=== PATIENT | female | born 1945 | race Caucasian/White ===

== ENCOUNTER 2017-07-17 23:40 | Emergency (ER) | payer MEDICARE, OTHER ==
[~2017-07-17] VITALS: Ht 160 cm; Wt 72.6 kg
[~2017-07-17 23:40] MED LIST: ARTO15 OP; ASPI-757 PO; CALC-854 PO; CALC500T42 PO; CALC600T72 PO; CEP500 PO; CETI10CA8 PO; CYCL1DRO6 OP; ESOM40CA42 PO; FAM20 PO; FEXO1TAB63 PO; FISH OIL1 CAP PO; FUR40 PO; GLUC-232 PO; IBUP100T51 PO; LEVO500T PO; LORA10CA3 PO; MET50 PO; METO25TA91 PO; METO25TA93 PO; MINO50CA PO; MULT-1 PO; Maxide; Mega Red PO; OMEG300C3 PO; POTA-24 PO; PRO25 PO; SERT25TA87 PO; SIMV5TAB56 PO; SPIR25TA78 PO; TETR-30 PO; TRIA-20 PO; VITA-131 PO; [UNRECOGNIZED DRUG - CODE] DT
--- NOTE | 2017-07-17 23:49 | ER Report ---
History and Physical Time Seen By MD: 23:48 HPI/ROS CHIEF COMPLAINT: fall with head injury HISTORY OF PRESENT ILLNESS: This is a 71 year old female. She tripped, lost her balance and fell tonight. Fell backward and hit her head on ceramic tile floor. No loss of consciousness. She has had several drinks tonight. She has a headache , some blurred vision, and difficulty concentrating. Occasional dizziness. Denies nausea. No neck pain. No other injury. Posterior scalp is bleeding. Allergies: Coded Allergies: Sulfa (Sulfonamide Antibiotics) (Verified Allergy, Mild, 07/17/17) Uncoded Allergies: HAYFEVER (Allergy, Intermediate, UNKNOWN, 12/26/11) Home Meds Reported Medications Diphenhydramine Hcl (DIPHENHYDRAMINE HCL) 50 Mg Capsule, 50 MG PO HS, CAPSULE 07/18/17 Melatonin (MELATONIN) 10 Mg Tablet, 20 MG PO HS 07/18/17 Aspirin (ASPIRIN) 325 Mg Tablet, 325 MG PO Q4-6H Y for PAIN/HEADACHE, TAB 05/11/16 Fexofenadine Hcl/Pseudoephedr (LUCY-D 24 HOUR TABLET) 1 Each Tabsr, 1 TAB PO QDAY Y for CONGESTION 05/11/16 Calcium Crb&Cit/D3/Min34/Enrrique (CITRACAL + BONE DENSITY TABLET) 1 Each Tablet, 1 EACH PO DAILY 05/11/16 Vitamin B Complex (VITAMIN B COMPLEX) 1 Each Tablet, 1 EACH PO DAILY 05/11/16 Triamterene/Hydrochlorothiazid (Triamterene/Hctz 37.5/25 Tb) 1 Each Tablet, 1 EACH PO 12/08/12 Gluc 2KCL/Chondr/Alma Delia Hy/Hy Ac (GLUCOSAMINE & CHONDROITIN CAP) 1 Each Capsule, 1 EACH PO DAILY 12/08/12 Multivitamins W-Minerals/Lut (Centrum Silver Tablet) 1 Tab Tablet, 1 TAB PO DAILY 12/08/12 [place]-3 Fatty Acids (Fish Oil) 300 Mg Capsule, 300 MG PO DAILY, 0 Refills 08/12/11 Esomeprazole Mag Trihydrate (Nexium) 40 Mg Capsule.dr, 40 MG PO QDAY, 0 Refills 08/12/11 Metoprolol Tartrate (Metoprolol Tartrate) 25 Mg Tablet, 25 MG PO BID, 0 Refills 1/28/12 Discontinued Reported Medications Cyclosporine (Restasis) 32 Ea [place], 1 EA OP QHS, 0 Refills 08/12/11 Reviewed Nurses Notes: Yes Hx Smoking: Yes (SMOKES 1 CIGAR PER DAY SINCE 1975. SMOKED CIGARETTES 10 YRS 1 PPD) Smoking Status: Current: Every Day Smoker, Light Tobacco Smoker Exposure to Second Hand Smoke?: No Hx Substance Use Disorder: No Hx Alcohol Use: Yes Constitutional Vital Sign - Last 24 Hours 07/17/17 07/18/17 07/18/17 07/18/17 23:46 00:00 00:01 00:20 Pulse 70 64 63 Resp 16 16 B/P (MAP) 145/111 (122) 145/111 150/69 (96) Pulse Ox 96 97 97 O2 Delivery Room Air Room Air 07/18/17 07/18/17 07/18/17 07/18/17 00:27 00:30 00:45 01:00 Pulse 59 B/P (MAP) 150/69 (96) 157/70 (99) Pulse Ox 99 97 07/18/17 01:30 Pulse 88 Resp 16 B/P (MAP) 148/88 (108) Pulse Ox 94 O2 Delivery Room Air Physical Exam General Appearance: The patient is alert, no acute distress. Eyes: Pupils equal and round no injection. Reactive to light. Extraocular movements are intact. ENT: normal oral mucosa. Neck: Neck is supple and non tender. Respiratory: Breathing easily. Cardiac: regular rate and rhythm Musculoskeletal: Extremities have full range of motion. Neck non-tender. Neuro: Alert and oriented x4. No focal deficits. Skin: Scalp laceration posterior to the right. Bleeding briskly and lots of blood matting the hair. DIFFERENTIAL DIAGNOSIS: After history and physical exam differential diagnosis was considered for fall with head laceration. Medical Decision Making EKG/Imaging Imaging EXAMINATION: Head CT without intravenous contrast History:Fall TECHNIQUE: Contiguous axial images were obtained from the skull base to the vertex without intravenous contrast. One of the following dose optimization techniques was utilized in the performance of this exam: Automated exposure control; adjustment of the mA and/or kV according to the patient's size; or use of an iterative reconstruction technique. Specific details can be referenced in the facility's radiology CT exam operational policy. COMPARISON STUDIES: 08/04/2011 FINDINGS: Visualized mastoid air cells / paranasal sinuses: negative Skull base / calvarium: Right parietal scalp swelling and hematoma. White matter: Moderate chronic small vessel disease. Dural venous sinuses / arterial structures: negative Ventricles / sulci / fissures: Enlarged but within normal limits for age. Masses / hemorrhage / midline shift: negative Extra-axial spaces: negative IMPRESSION: Right parietal scalp swelling and hematoma. No evidence of fracture or acute intracranial posttraumatic changes. Report Dictated By: Zen Isabel MD at 07/18/2017 12:59 AM EXAMINATION: CT cervical spine Additional pertinent history: Fall COMPARISON STUDIES: None One of the following dose optimization techniques was utilized in the performance of this exam: Automated exposure control; adjustment of the mA and/ or kV according to the patient's size; or use of an iterative reconstruction technique. Specific details can be referenced in the facility's radiology CT exam operational policy. TECHNIQUE: Axial images were obtained from the skull base through the upper thoracic spine without IV contrast administration. Coronal and sagittal reformatted images were obtained from the axial source data. FINDINGS: Prevertebral soft tissues: Negative Alignment: Loss of the normal cervical lordosis. Vertebral bodies: No vertebral body compression fractures. Posterior elements: Posterior elements well-maintained with respect to alignment. No fracture or disruption. Disc spaces: Degenerative changes at the C1-2 articulation. Disc degenerative changes at the C5-6 and C6-7 levels. Visualized soft tissues anterior neck: Negative Visualized lung/mediastinum: Negative IMPRESSION: 1. Loss of the normal cervical lordosis which may be related to muscle spasm. No acute bony pathology. Mild degenerative changes as described Report Dictated By: Herrera Marques MD at 07/18/2017 1:07 AM ED Course/Re-evaluation ED Course Procedure: Laceration Repair Verbal consent from patient after discussing repair options, risks and benefits. Wound cleaned extensively with Hibiclens and saline. Anesthesia: Local 1% lidocaine with epinephrine. Location: posterior right scalp. Length: 2cm. Character: Hematoma and bleeding briskly. Wound repair: 5 marcia. The wound repair was simple and performed by myself. Wound care instructions discussed. [place] need to be removed in 7 days. Tetanus booster given. Decision to Disposition Date: Jul 18, 2017 Decision to Disposition Time: 01:34 Depart Departure Latest Vital Signs Vital Signs Date Time Temp Pulse Resp B/P (MAP) Pulse Ox O2 Delivery O2 Flow Rate FiO2 07/18/17 01:30 88 16 148/88 (108) 94 Room Air Impression: Primary Impression: Concussion Additional Impression: Scalp laceration Condition: Improved Disposition: HOME OR SELF-CARE Referrals: CECY NAQVI MD (PCP) Patient Instructions: Concussion (ED), Laceration (ED) Additional Instructions: Wound Care: Wash the wound once a day with soap and water. Dry the wound and apply a small amount of antibiotic ointment with a clean dressing. If the dressing becomes wet or dirty, repeat cleaning and dressing as above. No soaking the wound; no swimming. [place] need to be removed in 7 days. Pain Control: Use Tylenol or ibuprofen for pain. Using and ice pack can help reduce swelling. Concussion symptoms include: headache, nausea/vomiting, dizziness, difficulty concentrating, blurred vision. These symptoms can be mild or moderate. If symptoms become severe, follow-up evaluation is needed. Avoid any heavy physical activity and avoid any activities that may cause repeat head injury. Concussion symptoms can last for days or weeks. There is no way to predict how long these will last. It is okay to sleep after a head injury. Just make sure someone is with you for the next 12 hours and that they check 1-2 hours to make sure you are still doing okay. Return to the ER for any altered mental status changes or confusion, or if one pupil is larger than the other, or if there are other abnormal or severe changes. Use Tylenol as needed for pain for the next 12-24 hours. You can begin using Ibuprofen after about 24 hours. Do not take any medicines containing aspirin for several days. Problem Qualifiers Primary Impression: Concussion Encounter type: initial encounter Loss of consciousness presence/duration: without LOC Qualified Codes: S06.0X0A - Concussion without loss of consciousness, initial encounter Additional Impression: Scalp laceration Encounter type: initial encounter Qualified Codes: S01.01XA - Laceration without foreign body of scalp, initial encounter CARLOZ MEAD MD Jul 17, 2017 23:49
[2017-07-18] MEDS ORDERED: MELA10TA2 PO (00:01)
[2017-07-18] MEDS ORDERED: DIPH-466 PO (00:01)
--- NOTE | 2017-07-18 01:05 | RADIOLOGY IMAGING REPORT ---
FACILITY: [facility] - [place] PATIENT NAME: Ysabel Newell : 1945 MR: [id number] V: [id number] EXAM DATE: ORDERING PHYSICIAN: CARLOZ MEAD TECHNOLOGIST: [place] [facility] [place] Ysabel Neewll : 1945 Visit/Account:[id number] Date of Sevice: 07/17/2017 EXAMINATION: Head CT without intravenous contrast History:Fall TECHNIQUE: Contiguous axial images were obtained from the skull base to the vertex without intraven ous contrast. One of the following dose optimization techniques was utilized in the performance of th is exam: Automated exposure control; adjustment of the mA and/or kV according to the patient's size; or use of an iterative reconstruction technique. Specific details can be referenced in the facility 's radiology CT exam operational policy. COMPARISON STUDIES: 08/04/2011 FINDINGS: Visualized mastoid air cells / paranasal sinuses: negative Skull base / calvarium: Right parietal scalp swelling and hematoma. White matter: Moderate chronic small vessel disease. Dural venous sinuses / arterial structures: negative Ventricles / sulci / fissures: Enlarged but within normal limits for age. Masses / hemorrhage / midline shift: negative Extra-axial spaces: negative IMPRESSION: Right parietal scalp swelling and hematoma. No evidence of fracture or acute intracranial posttraumat ic changes. Report Dictated By: Zen Isabel MD at 07/18/2017 12:59 AM Report E-Signed By: Zen Isabel MD at 07/18/2017 1:02 AM WSN:[id number]
[2017-07-18] MEDS ORDERED: DIPHTH/TETANUS/ACEL. PERTUSSIS IM ONLY ONE (01:20)
--- NOTE | 2017-07-18 01:23 | RADIOLOGY IMAGING REPORT ---
FACILITY: [facility] PATIENT NAME: Ysabel Newell : 1945 MR: [id number] V: [id number] EXAM DATE: ORDERING PHYSICIAN: CARLOZ MEAD TECHNOLOGIST: [place] [facility] [place] Ysabel Newell : 1945 Visit/Account:[id number] Date of Sevice: 07/17/2017 C-SPINE W/O CONTRAST C-SPINE W/O CONTRAST EXAMINATION: CT cervical spine Additional pertinent history: Fall COMPARISON STUDIES: None One of the following dose optimization techniques was utilized in the performance of this exam: Autom ated exposure control; adjustment of the mA and/or kV according to the patient's size; or use of an i terative reconstruction technique. Specific details can be referenced in the facility's radiology C T exam operational policy. TECHNIQUE: Axial images were obtained from the skull base through the upper thoracic spine without IV contrast administration. Coronal and sagittal reformatted images were obtained from the axial source data. FINDINGS: Prevertebral soft tissues: Negative Alignment: Loss of the normal cervical lordosis. Vertebral bodies: No vertebral body compression fractures. Posterior elements: Posterior elements well-maintained with respect to alignment. No fracture or disr uption. Disc spaces: Degenerative changes at the C1-2 articulation. Disc degenerative changes at the C5-6 and C6-7 levels. Visualized soft tissues anterior neck: Negative Visualized lung/mediastinum: Negative IMPRESSION: 1. Loss of the normal cervical lordosis which may be related to muscle spasm. No acute bony pathology . Mild degenerative changes as described Report Dictated By: Herrera Marques MD at 07/18/2017 1:07 AM Report E-Signed By: Herrera Marques MD at 07/18/2017 1:21 AM WSN:[id number]
[2017-07-18 01:30] VITALS: BP 148/88
== END 2017-07-18 01:45 | disposition home or self-care (01) ==
LOC: ER 07-18
DX: S06.0X0A Concussion without loss of consciousness, initial encounter (principal); S01.01XA Laceration without foreign body of scalp, initial encounter; W18.30XA Fall on same level, unspecified, initial encounter
CPT/HCPCS: 70450; 72125; 90471; 90715; 99283

== ENCOUNTER → 2017-08-24 | Outpatient (CLI) | payer MEDICARE, OTHER ==
[~2017-08-24] MED LIST changes: +DIPH-466 PO; +MELA10TA2 PO
--- NOTE | 2017-08-24 15:35 | RADIOLOGY IMAGING REPORT ---
FACILITY: [facility] [place] PATIENT NAME: JERMAINE CAMP : [id number] MR: [id number] V: [id number] EXAM DATE: ORDERING PHYSICIAN: CECY NAQVI TECHNOLOGIST: Carolina Costello PROCEDURE:BILATERAL DIGITAL SCREENING MAMMOGRAM WITH CAD ASSISTED INTERPRETATION & 3D TOMOSYNTHESIS COMPARISON:08/11/16 & priors back to 07/18/2011 INDICATIONS:SCREENING FINDINGS: Breasts are composed of fibroglandular parenchymal densities. There is a stable ovoid benign appearing mass in the upper outer aspect of the left breast. There are no mammographic findings concerning for malignancy. There is no significant interval change. DIAGNOSTIC CATEGORY 2--BENIGN FINDING. RECOMMENDATIONS: ROUTINE MAMMOGRAM AND CLINICAL EVALUATION IN 1 YR. IMPRESSION: BIRADS 2: Benign finding. Dictated by: Ron Narayan on 08/24/2017 at 13:45 Transcribed by: DILIA on 08/24/2017 at 15:00 Approved by: Ron Narayan on 08/24/2017 at 15:34 [facility]
== END ==
LOC: MAMO 00:25
PROVIDERS: ATTEND Family Medicine
DX: Z12.31 Encounter for screening mammogram for malignant neoplasm of breast (principal); N63.21 Unspecified lump in the left breast, upper outer quadrant
CPT/HCPCS: 77063; 77067

== ENCOUNTER 2018-03-05 14:28 | Emergency (ER) | payer MEDICARE, OTHER ==
--- NOTE | 2018-03-05 14:34 | ER Report ---
History and Physical Time Seen By MD: 14:33 HPI/ROS CHIEF COMPLAINT: Pain when standing HISTORY OF PRESENT ILLNESS: Patient is a 72-year-old female with recent history of fall and complaining of right-sided pain with deep inspiration or when going from sitting to standing. She denies any infectious symptoms like fever or chill s. REVIEW OF SYSTEMS: Constitutional: No fever, no chills. Eyes: No discharge. ENT: No sore throat. Cardiovascular: Right chest wall pain. Respiratory: No cough, no shortness of breath. Gastrointestinal: No abdominal pain, no vomiting. Genitourinary: No hematuria. Musculoskeletal: No back pain. Skin: No rashes. Neurological: No headache. Allergies: Coded Allergies: Sulfa (Sulfonamide Antibiotics) (Verified Allergy, Mild, 07/17/17) Uncoded Allergies: HAYFEVER (Allergy, Intermediate, UNKNOWN, 12/26/11) Home Meds Active Scripts Hydrocodone Bit/Acetaminophen (HYDROCODON-ACETAMINOPHEN 5-325) 1 Each Tablet, 1 EACH PO Q4-6H for PAIN, #6 TAB 0 Refills Prov:JAQUELINE GOMEZ MD 03/05/18 Reported Medications Losartan Potassium (LOSARTAN POTASSIUM) 100 Mg Tablet 03/05/18 Famotidine (PEPCID) 20 Mg Tablet, 20 MG PO QDAY, #10 TAB 03/05/18 Diphenhydramine Hcl (DIPHENHYDRAMINE HCL) 50 Mg Capsule, 50 MG PO HS, CAPSULE 07/18/17 Melatonin (MELATONIN) 10 Mg Tablet, 20 MG PO HS 07/18/17 Aspirin (ASPIRIN) 325 Mg Tablet, 325 MG PO Q4-6H PRN for PAIN/HEADACHE, TAB 05/11/16 Fexofenadine Hcl/Pseudoephedr (LUCY-D 24 HOUR TABLET) 1 Each Tabsr, 1 TAB PO QDAY PRN for CONGESTION 05/11/16 Calcium Crb&Cit/D3/Min34/Enrrique (CITRACAL + BONE DENSITY TABLET) 1 Each Tablet, 1 EACH PO DAILY 05/11/16 Vitamin B Complex (VITAMIN B COMPLEX) 1 Each Tablet, 1 EACH PO DAILY 05/11/16 Triamterene/Hydrochlorothiazid (Triamterene/Hctz 37.5/25 Tb) 1 Each Tablet, 1 EACH PO 12/08/12 Gluc 2KCL/Chondr/Alma Delia Hy/Hy Ac (GLUCOSAMINE & CHONDROITIN CAP) 1 Each Capsule, 1 EACH PO DAILY 12/08/12 Multivitamins W-Minerals/Lut (Centrum Silver Tablet) 1 Tab Tablet, 1 TAB PO DAILY 12/08/12 [place]-3 Fatty Acids (Fish Oil) 300 Mg Capsule, 300 MG PO DAILY, 0 Refills 08/12/11 Metoprolol Tartrate (Metoprolol Tartrate) 25 Mg Tablet, 25 MG PO BID, 0 Refills 08/12/11 Discontinued Reported Medications Esomeprazole Mag Trihydrate (Nexium) 40 Mg Capsule.dr, 40 MG PO QDAY, 0 Refills 08/12/11 Past Medical/Surgical History Past medical history for hypertension, gastroesophageal reflux disease,. Osteoporosis. Hx Smoking: Yes (SMOKES 1 CIGAR PER DAY SINCE 1975. SMOKED CIGARETTES 10 YRS 1 PPD) Smoking Status: Current: Every Day Smoker, Light Tobacco Smoker Exposure to Second Hand Smoke?: No Hx Substance Use Disorder: No Hx Alcohol Use: Yes Constitutional Vital Sign - Last 24 Hours 03/05/18 14:37 Temp 98.3 Pulse 76 Resp 18 B/P (MAP) 199/85 Pulse Ox 93 O2 Delivery Room Air Physical Exam General Appearance: The patient is alert, has no immediate need for airway protection and no signs of toxicity. Eyes: Pupils equal and round no pallor or injection. ENT, Mouth: Mucous membranes are moist. Respiratory: There are no retractions, lungs are clear to auscultation. Cardiovascular: Regular rate and rhythm. Gastrointestinal: Abdomen is soft and non tender, no masses, bowel sounds normal. Neurological: Weak alert and nontoxic Skin: Warm and dry, no rashes. Musculoskeletal: Neck is supple non tender. Patient is able to stand up with discomfort to the right hip area. Patient is able to ambulate with out assistance. Extremities are nontender, nonswollen and have full range of motion. [ ] Medical Decision Making EKG/Imaging Imaging [place] [facility] [place]IENT NAME: Ysabel Newell : 1945 MR: [id number] V: [id number] EXAM DATE: [id number] ORDERING PHYSICIAN: JAQUELINE GOMEZ TECHNOLOGIST: Location: [facility] [place] Patient: Ysabel Newell : 1945 Visit/Account:[id number] Date of Sevice: 03/05/2018 2 VIEWS CHEST INDICATION: Pain and bruising. COMPARISON: 08/04/2011. FINDINGS: Cardiomediastinal silhouette and pulmonary vessels within normal limits. There is no focal infiltrate or lobar consolidation. There is no pneumothorax or pleural effusion. No nodule. Upper abdomen is unremarkable. Mild compression the C6 vertebral body. This is not seen 2011. No other indication of acute bony abnormality. No discrete rib fractures. IMPRESSION: 1. No acute cardiopulmonary process. 2. Mild compression of the T6 vertebral body without retropulsion. Age of which is indeterminate. Report Dictated By: Buddy Ward at 03/05/2018 3:22 PM Report E-Signed By: Buddy Ward at 03/05/2018 3:25 PM WSN:[id number] ED Course/Re-evaluation ED Course Plan at this time will be x-ray Decision to Disposition Date: Mar 06, 2018 Decision to Disposition Time: 10:00 Depart Departure Latest Vital Signs Vital Signs Date Time Temp Pulse Resp B/P (MAP) Pulse Ox O2 Delivery O2 Flow Rate FiO2 03/05/18 14:37 98.3 76 18 199/85 93 Room Air Impression: Primary Impression: Right rib fracture Condition: Improved Disposition: HOME OR SELF-CARE Referrals: CECY NAQVI MD (PCP) 2 Days if symptoms persist New Scripts Hydrocodone Bit/Acetaminophen (HYDROCODON-ACETAMINOPHEN 5-325) 1 Each Tablet 1 EACH PO Q4-6H for PAIN, #6 TAB 0 Refills Prov: JAQUELINE GOMEZ MD 03/05/18 Patient Instructions: Rib Fracture (DC) Problem Qualifiers Primary Impression: Right rib fracture Encounter type: initial encounter Rib fracture type: single rib Fracture type: closed Qualified Codes: S22.31XA - Fracture of one rib, right side, initial encounter for closed fracture JAQUELINE GOMEZ MD Mar 05, 2018 14:34
[2018-03-05 14:37] VITALS: BP 199/85
[2018-03-05] MEDS ORDERED: LOSA100T67 (14:49)
[2018-03-05] MEDS ORDERED: FAMO20TA28 PO (14:49)
--- NOTE | 2018-03-05 15:30 | RADIOLOGY IMAGING REPORT ---
FACILITY: [facility] PATIENT NAME: Ysabel Newell : 1945 MR: [id number] V: [id number] EXAM DATE: ORDERING PHYSICIAN: JAQUELINE GOMEZ TECHNOLOGIST: [place] [facility] [place]: Ysabel Newell : 1945 Visit/Account:[id number] Date of Sevice: 03/05/2018 2 VIEWS CHEST INDICATION: Pain and bruising. COMPARISON: 08/04/2011. FINDINGS: Cardiomediastinal silhouette and pulmonary vessels within normal limits. There is no focal infiltrate or lobar consolidation. There is no pneumothorax or pleural effusion. No nodule. Upper abdomen is unremarkable. Mild compression the C6 vertebral body. This is not seen 2010. No othe r indication of acute bony abnormality. No discrete rib fractures. IMPRESSION: 1. No acute cardiopulmonary process. 2. Mild compression of the T6 vertebral body without retropulsion. Age of which is indeterminate. Report Dictated By: Buddy Ward at 03/05/2018 3:22 PM Report E-Signed By: Buddy Ward at 03/05/2018 3:25 PM WSN:[id number]
--- NOTE | 2018-03-05 15:34 | RADIOLOGY IMAGING REPORT ---
FACILITY: [facility] PATIENT NAME: Ysabel Newell : 1945 MR: [id number] V: [id number] EXAM DATE: ORDERING PHYSICIAN: JAQUELINE GOMEZ TECHNOLOGIST: Location: [facility] - [place] Patient: Ysabel Newell : 1945 Visit/Account:[id number] Date of Sevice: 03/05/2018 Single view chest with right ribs INDICATION: Pain and bruising. COMPARISON: X-ray examination of the chest from today FINDINGS: Three dedicated oblique images of the right ribs are submitted. A BB is seen lateral right ninth rib. The adjacent ribs are without fracture or destructive osseous process. Subtle buckling lateral cortex right 10th rib which may represent a nondisplaced fracture. No effusion or consolidat ion. Trace effusion versus pleural thickening right base. IMPRESSION: 1. There is a subtle cortical buckling anterior lateral right 10th rib suspicious for nondisplaced f racture. Minimal blunting right costophrenic sulcus indicative of pleural thickening or trace effusi on. Report Dictated By: Carmelo Whitfield MD at 03/05/2018 3:27 PM Report E-Signed By: Carmelo Whitfield MD at 03/05/2018 3:29 PM WSN:[email or web address]
[2018-03-05] MEDS ORDERED: LOR5/325 PO (15:49)
== END 2018-03-05 16:04 | disposition home or self-care (01) ==
LOC: ER 14:42
DX: S22.31XA Fracture of one rib, right side, initial encounter for closed fracture (principal); W18.30XA Fall on same level, unspecified, initial encounter
CPT/HCPCS: 71046; 71100; 99283

== ENCOUNTER → 2018-04-12 | Outpatient (CLI) | payer MEDICARE, OTHER ==
[~2018-04-12] MED LIST changes: +FAMO20TA28 PO; +LOR5/325 PO; +LOSA100T69
--- NOTE | 2018-04-12 14:05 | RADIOLOGY IMAGING REPORT ---
FACILITY: [facility] PATIENT NAME: Ysabel Newell : 1945 MR: [id number] V: [id number] EXAM DATE: ORDERING PHYSICIAN: CECY NAQVI TECHNOLOGIST: Location: [facility] [place] Patient: Ysabel Newell : 1945 Visit/Account:[id number] Date of Sevice: 04/12/2018 WRIST RIGHT 2 VIEW Indication: Fall one month ago. Ongoing pain. Comparison: Right wrist radiograph 12/08/2012 Findings: Generalized decreased bone mineralization is present. No definite acute fracture is seen. There has been progression of severe first carpometacarpal osteoarthrosis since prior exam. Addition ally, degenerative change in the distal radial ulnar joint and radiocarpal joints is increased. Ther e is some mild irregularity in the ulnar styloid, unchanged, suggestive of remote trauma. There is severe surrounding soft tissue swelling noted. IMPRESSION: 1. Soft tissue swelling without definite acute osseous abnormality. 2. Degenerative change is most severe in the first carpometacarpal joint. Report Dictated By: Kami Porras MD at 04/12/2018 1:58 PM Report E-Signed By: Kami Porras MD at 04/12/2018 2:01 PM EDDIEN:PACHECO
== END ==
LOC: RAD 09:38
PROVIDERS: ATTEND Family Medicine
DX: M19.031 Primary osteoarthritis, right wrist (principal); R22.31 Localized swelling, mass and lump, right upper limb

== ENCOUNTER → 2018-05-14 | Outpatient (CLI) | payer MEDICARE, OTHER ==
--- NOTE | 2018-05-14 15:39 | RADIOLOGY IMAGING REPORT ---
FACILITY: [facility] PATIENT NAME: Ysabel Newell : 1945 MR: [id number] V: [id number] EXAM DATE: ORDERING PHYSICIAN: CECY NAQVI TECHNOLOGIST: Location: [facility] [place] Patient: Ysabel Newell : 1945 Visit/Account:[id number] Date of Sevice: 05/14/2018 Exam type: VENOUS DOPP LOW LEFT EXTREMITY History: Fell 2 weeks ago, lacerated skin left brooks with red lump Comparison: None. Findings: The left lower extremity veins were imaged including the left common femoral vein, greater saphenous vein, superficial femoral vein, popliteal vein, anterior tibial vein, posterior tibial vein and peron eal veins revealing no evidence of intimal thrombi the veins were compressible and demonstrated augme ntation. Incidentally noted is a 6.5 x 1.5 x 4.9 cm complex fluid collection beneath the skin along the left brooks in the area of patient's palpable lump likely representing a hematoma IMPRESSION: 1. No sonographic evidence DVT involving the left lower extremity veins Probable hematoma seen along the anterior aspect of the left brooks Report Dictated By: Christine Moscoso MD at 05/14/2018 3:29 PM Report E-Signed By: Christine Moscoso MD at 05/14/2018 3:34 PM WSN:[email or web address]
== END ==
LOC: US 14:40
PROVIDERS: ATTEND Family Medicine
DX: S80.12XA Contusion of left lower leg, initial encounter (principal)

== ENCOUNTER → 2018-09-24 | Outpatient (CLI) | payer MEDICARE, OTHER ==
[~2018-09-24] MED LIST changes: -LOSA100T69; +LOSA100T75
--- NOTE | 2018-09-25 08:48 | RADIOLOGY IMAGING REPORT ---
FACILITY: [facility] - [place], [place] PATIENT NAME: JERMAINE CAMP : [id number] MR: [id number] V: [id number] EXAM DATE: ORDERING PHYSICIAN: CECY [id number] TECHNOLOGIST: Carolina Costello PROCEDURE:BILATERAL DIGITAL SCREENING MAMMOGRAM WITH CAD ASSISTED INTERPRETATION & 3D TOMOSYNTHESIS COMPARISON:Prior mammograms 08/24/17, 08/11/16, 08/06/15, 08/20/14, 08/05/13, 08/14/12, . INDICATIONS:SCREENING FINDINGS: There are scattered areas of fibroglandular density throughout the breasts. The parenchymal pattern has remained stable allowing for difference in mammographic technique & patient positioning. DIAGNOSTIC CATEGORY 1--NEGATIVE. RECOMMENDATIONS: ROUTINE MAMMOGRAM AND CLINICAL EVALUATION. IMPRESSION: BIRADS 1: Negative. No significant abnormality is seen. Dictated by: Christine Moscoso M.D. on 09/24/2018 at 17:17 Transcribed by: [email or web address] on 09/25/2018 at 8:39 Approved by: Christine Moscoso M.D. on 09/25/2018 at 8:48 [facility]
== END ==
LOC: MAMO 01:37
PROVIDERS: ATTEND Family Medicine
DX: Z12.31 Encounter for screening mammogram for malignant neoplasm of breast (principal)
CPT/HCPCS: 77063; 77067